=== PATIENT | male | born 1990 | race Two or more races ===

== ENCOUNTER 2016-10-28 19:20 | Observation (INO) | payer OTHER ==
--- NOTE | ~2016-10-28 | CO ---
Unit #: [id number] #: [id number] Patient: VIVEK PRIDE [id number] [facility] [address] [facility] [place], [place] [address] [id number] I MR#: [id number] NAME: VIVEK PRIDE ROOM: 565 Age: 26 Sex: M Admission Date: 10/28/2016 : 1990 Attending Physician: Ching Salazar M.D. Primary Care Physician: Arik Carranza M.D. Consultation Date: 10/30/2016 CONSULTATION REPORT REASON FOR CONSULTATION Overdose, agitation, substance abuse. HISTORY OF PRESENT ILLNESS Mr. Calvillo is a 26-year-old male seen in room 565, bed 1, on 10/30/2016 at [facility]. Patient dressed in hospital attire, lying comfortably in bed. Patient has a sitter. Patient admitted using methamphetamine and opiates. Coming to the hospital, patient was agitated and received medication such as Geodon for agitation. The patient responded well with that and showing improvement. At this time, patient currently denied any suicidal or homicidal ideation. Denied any psychotic symptoms but reported having withdrawals from opiates and methamphetamine. Reported having complaints such as trouble sleeping, anxiety, restlessness of his legs, creepy crawly feeling, hot and cold sweats. PAST PSYCHIATRIC HISTORY Remarkable for history of previous treatment at [facility]. The patient was last admitted on October 28, 2016 and diagnosed with opiate use disorder. No history of any suicide attempt. MEDICAL HISTORY Unremarkable. MEDICATIONS None. FAMILY HISTORY AND SOCIAL HISTORY Patient reports that he has a good support system. No history of abuse. History of polysubstance abuse as mentioned above. REVIEW OF SYSTEMS Complete review of systems is unremarkable except as mentioned above. MENTAL STATUS EXAMINATION Vital signs: 98.6, 76, 18, 117/53, oxygen saturation 98%. General appearance: Patient dressed casually in hospital attire. Lying comfortably. Seemed somewhat anxious and nervous. Attention span and concentration fair. Speech: Regular rate, coherent. Oriented in time, place, and person. Mood and affect labile. Thought process coherent. Thought content: Patient denied any thoughts of harming self or others. Denied any auditory or visual hallucinations but when admitted, he was agitated and confused. Recent and remote memory fair. Language intact. Fund of knowledge fair. Insight and judgment fair to slightly impaired. Unit #: [id number] #: [id number] Patient: VIVEK PRIDE DIAGNOSES PSYCHIATRIC: Delirium, F05, resolved. Opiate use disorder, moderate, F11.20. Amphetamine use disorder, moderate, F15.20. SECONDARY DIAGNOSIS: Deferred. MEDICAL DIAGNOSIS: Please refer to H and P. STRESSORS: Psychosocial stressor. ASSESSMENT AND PLAN 1. Supportive psychotherapy, psychoeducation provided to patient. 2. Educated about benefits and side effects of medications and course and prognosis of illness. 3. Advise to discontinue sitter at this time as patient denied that it was a suicide attempt. Denied current suicidal or homicidal ideation. Denied any psychotic symptoms at this time. Patient was advised medication for withdrawal symptoms from opiates such as Neurontin 300 mg three times a day, Requip 1 mg twice daily, Desyrel 25 mg three times a day, and trazodone 100 mg at bedtime for sleep. 4. Patient advised after discharge from [facility] to follow up in outpatient (1) program at [facility] and also given patient that number, . Please feel free to call if any questions, . Dictated by... Scarlet Lockwood/tommy TD: 10/30/2016 15:50 JOB #: [id number] CONSULTATION REPORT Page 1 of 1 X Kulwant Garrison MD X CONSULTATION REPORT
--- NOTE | ~2016-10-28 | EKG ---
PATIENT: VIVEK PRIDE UNIT #: [id number] Ventricular Rate: 93 BPM Atrial Rate: 93 BPM P-R Interval: 138 ms QRS Duration: 86 ms Q-T Interval: 364 ms QTC Calculation(Bezet): 452 ms P [place]: 86 degrees Calculated R [place]: 96 degrees Calculated T [place]: 10 degrees Diagnosis Line: Normal sinus rhythm Diagnosis Line: Rightward axis Diagnosis Line: Early repolarization Otherwise normal ECG Diagnosis Line: When compared with ECG of 29-OCT-2016 12:58, Diagnosis Line: (unconfirmed) Diagnosis Line: No significant change was found Diagnosis Line: Confirmed by MADDY MAXWELL MD ([id number]) on 10/30/2016 Diagnosis Line: 4:07:23 PM INTERPRETING MD: HANS LUNDY
--- NOTE | ~2016-10-28 | HP ---
Unit #: [id number] #: [id number] Patient: VIVEK PRIDE [id number] [address] [place], [place] [address] [id number] I MR#: [id number] NAME: VIVEK PRIDE ROOM: 565 Age: 26 Sex: M Admission Date: 10/28/2016 : 1990 Attending Physician: Ching Salazar M.D. Primary Care Physician: Arik Carranza M.D. HISTORY AND PHYSICAL CHIEF COMPLAINT Drug overdose. HISTORY OF PRESENT ILLNESS This is a 26-year-old gentleman who is unable to give me any history. Currently he is sedated, moving all extremities, not responding, sleepy. He was brought to the emergency room and he was found in someone's yard. EMS was called. The patient was taken to the emergency room. He was found to be agitated initially in the emergency room and was given Ativan 1 mg initially and then it was repeated another Ativan 2 mg and then he got Geodon 10 mg and Ativan another time, 2 mg repeated. Then eventually the patient has been admitted for methamphetamine, opiate overdose, with withdrawal symptoms and agitation. As mentioned, I am unable to get any information from him. PAST MEDICAL HISTORY Unknown. PAST SURGICAL HISTORY Unknown. SOCIAL HISTORY Unknown. HOME MEDICATIONS Unknown. PHYSICAL EXAMINATION GENERAL: Young man lying in bed comfortably, currently sleepy. He is oriented times zero, sleepy. VITALS: Currently, temperature 98.2, heart rate 112, respiratory rate 17, blood pressure 115/60, oxygen 97% on room air. HEENT: Pupils equal and reactive to light. Head normocephalic, atraumatic. NECK: Supple. No jugular venous distension. LUNGS: Clear to auscultation bilaterally. No rhonchi. No wheezing. HEART: S1 and S2. Regular rate and rhythm. Tachycardia. ABDOMEN: Soft, nontender. EXTREMITIES: Inspection normal. No cyanosis, clubbing or edema. NEUROLOGIC: Unable to do neurologic exam at this time. DIAGNOSTIC STUDIES LABORATORY: CBC shows white blood cell count 14, hemoglobin 10, hematocrit 34, platelets 308. Urine toxicology positive for amphetamine Unit #: [id number] #: [id number] Patient: BIGG,VIVEK and opiates. Chemistry, sodium 136, potassium 3.9, chloride 101, glucose 70, BUN 13, creatinine 1, AST 99, ALT 77, alkaline phosphatase 97, CK total 1580. ASSESSMENT/PLAN 1. Methamphetamine and opiate overdose. 2. Withdrawal and agitation. The patient is requiring Ativan and Geodon in the emergency room. Will keep the patient one-to-one. Ask psychiatry, Dr. Garrison, to evaluate in the morning. Start the patient on Geodon on a p.r.n. basis. 3. Mild rhabdomyolysis. Started on IV fluids, D5 half normal saline at 150 mL per hour. 4. Abnormal LFTs. 5. Mild leukocytosis. 6. DVT prophylaxis. Will place the patient on SCDs. Dictated by Scarlet Maier TD: 10/29/2016 06:20 JOB #: [id number] HISTORY AND PHYSICAL Page 1 of 1 X X HISTORY AND PHYSICAL
--- NOTE | ~2016-10-28 | CO ---
Unit #: [id number] #: [id number] Patient: VIVEK PRIDE [id number] [address] [place], [place] [address] [id number] MR#: [id number] NAME: VIVEK PRIDE ROOM: [facility] Age: 26 Sex: M Admission Date: 10/28/2016 : 1990 Attending Physician: Ching Salazar M.D. Primary Care Physician: Arik Carranza M.D. CONSULTATION REPORT REASON FOR CONSULTATION A 26-year-old -[place] male with marked elevation of total CK and IV drug abuse. CLINICAL SUMMARY Mr. Pride is a 26-year-old gentleman, who has no prior history of any heart issues. He states he has been using heroin and methamphetamine for about two years now. When asked why he was admitted, he states that he thinks he may have had an overdose of heroin and methamphetamine and was brought to the emergency department. Patient was noted to have marked elevation of his total CK to 1580 but with a troponin of less than 0.03. When asked how long he was "down", he really has no idea. He thinks it may have just been an hour or two but clearly with elevated CK, it was much longer. Patient is not able to give any other history surrounding his circumstances of admission. He denies having any shaking chills or fever. He had never been told he had an abnormal heart murmur. He has not had any embolic events or hemoptysis or acute shortness of breath. Denies any chest, neck, arm, jaw, or intrascapular discomfort suggestive of angina. ALLERGIES No known drug allergies. HOME PRESCRIPTION MEDICINE Ultram p.r.n. PAST SURGICAL HISTORY None. SOCIAL HISTORY As noted, patient admits to using both heroin and methamphetamines. He was reportedly found in a puddle in someone's yard. He had gone to [facility] for rehab but signed himself out after 24 hours. He stated "I'm just not ready." FAMILY HISTORY Negative for premature coronary disease. REVIEW OF SYSTEMS A 12-point review of systems is otherwise negative. PHYSICAL EXAMINATION Unit #: [id number] #: [id number] Patient: VIVEK PRIDE GENERAL: He is a slender, young, physically fit appearing 26-year-old gentleman who is in no acute distress. Patient is sitting up in bed watching television. VITAL SIGNS: Blood pressure 119/94. Monitor shows normal sinus rhythm at 88 per minute. Respiratory rate 16 per minute and nonlabored. LUNGS: Showed good air movement bilaterally without any wheezes, rales, or rhonchi. CARDIOVASCULAR: Reveals a normal S1. The pulmonic component of the second heart sound is not increased. There is no right ventricular lift or heave. There is no pathologic murmur auscultated. Carotid upstrokes are brisk bilaterally without any bruits. There are no signs of subacute or acute endocarditis on examination of pharynx, conjunctivae, and nail beds. ABDOMEN: Nondistended with normal bowel sounds. No hepatosplenomegaly. EXTREMITIES: No edema, cyanosis, bruises, or signs of trauma. NEUROLOGIC: He is alert and oriented x3. There are no gross motor or sensory/lateralizing defects. DIAGNOSTIC STUDIES CARDIOVASCULAR: EKG, October 29, 2016 at 12:58: Normal sinus rhythm at 77 beats per minute, completely normal EKG. EKG, October 29, 2016 at 1507: Normal sinus rhythm at 93 beats per minute, completely normal EKG. ASSESSMENT 1. Elevated creatinine kinase enzymes, secondary to mild rhabdomyolysis. Patient has no history compatible with acute coronary syndrome. The troponin associated with the elevated CK is only less than 0.03 and no ischemic changes on the EKG. Clearly noncardiac elevation. 2. Multisubstance abuse: Admits to both heroin and methamphetamine use. 3. Elevated liver function tests. 4. Leukocytosis. RECOMMENDATIONS No further cardiac workup is needed with respect to the elevated CK. This is clearly musculoskeletal in nature and patient pretest likelihood of coronary disease is extremely remote. A stress test will not be useful or really indicated. We will get a 2D echocardiogram with respect to evaluating for any vegetation, particularly on the tricuspid valve given the IV drug abuse. I did discuss with patient almost certain likelihood of eventual debilitating morbidity and mortality resulting from his continued IV drug abuse. He seemed rather disinterested and only responded "yeah, of course" to these issues. He still is not interested in pursuing a drug rehab. Thank you for involving us in the care of this patient and no other cardiac workup is needed other than the echocardiogram. Long-term prognosis depends on eventual rehab from his drug abuse. Dictated by... Manjeet Galindo M.D. Unit #: [id number] #: [id number] Patient: VIVEK PRIDE CARLA/tommy TD: 10/30/2016 14:21 JOB #: [id number] CONSULTATION REPORT Page 1 of 1 X Manjeet Galindo MD X CONSULTATION REPORT
--- NOTE | ~2016-10-28 | EKG ---
PATIENT: VIVEK PRIDE UNIT #: [id number] Ventricular Rate: 77 BPM Atrial Rate: 77 BPM P-R Interval: 136 ms QRS Duration: 72 ms Q-T Interval: 386 ms QTC Calculation(Bezet): 436 ms P [place]: 22 degrees Calculated R [place]: 69 degrees Calculated T [place]: 47 degrees Diagnosis Line: Normal sinus rhythm Diagnosis Line: Normal ECG Diagnosis Line: No previous ECGs available Diagnosis Line: Confirmed by MADDY MAXWELL MD ([id number]) on 10/30/2016 Diagnosis Line: 4:06:42 PM INTERPRETING MD: HANS LUNDY
[~2016-10-28 19:20] MED LIST: FLEXERIL PO; MEDROL PO; TYLENOL #3 PO; ULTRAM PO
[2016-10-28 20:05] LABS: BASOPHIL# 0.1 X10e3 (0-0.3); BASOPHIL% 0.3 % (0-2.5); EOSINOPHIL# 0.1 X10e3 (0-0.7); EOSINOPHIL% 0.6 % (0.0-7.0); HEMOGLOBIN 10.7 gm/dL (13.0-16.0); LYMPHOCYTE# 1.1 X10e3 (1.0-3.5); LYMPHOCYTE% 7.2 % (17.0-45.0); MEAN CELL VOLUME 79.7 FL (83-96); MEAN CORPUSCULAR HEMOGLOBIN 25.1 PG (28-34); MEAN CORPUSCULAR HGB CONC 31.6 g/dL (30-36); MEAN PLATELET VOLUME 8.7 FL (6.5-11.5); MONOCYTE# 0.9 X10e3 (0-1.0); MONOCYTE% 6.2 % (3.0-12.0); NEUTROPHIL# 12.8 X10e3 (1.5-7.1); NEUTROPHIL% 85.7 % (40-75); PLATELET COUNT 308 X10e3 (140-420); RED BLOOD COUNT 4.26 X10e (3.90-5.60); RED CELL DISTRIBUTION WIDTH 17.5 % (11.0-15.5); WHITE BLOOD COUNT 14.9 X10e3 (4.0-10.5)
[2016-10-28 20:07] LABS: DIFF IND NO
[2016-10-28 20:14] LABS: AMPHETAMINE POS (NEG); BARBITURATES NEG (NEG); BENZODIAZEPINES NEG (NEG); COCAINE NEG (NEG); MARIJUANA NEG (NEG); OPIATES POS (NEG); TRICYCLIC ANTIDEPRESSANTS NEG (NEG); U METHADONE NEG (NEG)
[2016-10-28 20:43] LABS: BILIRUBIN, DIRECT 0.1 mg/dL (0.0-0.2); BILIRUBIN,INDIRECT 0.6 mg/dL (0.0-0.9); BILIRUBIN,TOTAL 0.7 mg/dL (0.2-2.0); CALCIUM SERUM 8.9 mg/dL (8.4-10.2); GLOM FILT RATE Estimated 103.4 mL/min (>60); POTASSIUM 3.9 mmol/L (3.5-5.1); PROTEIN TOTAL SERUM 7.2 g/dL (6.0-8.3)
[2016-10-29 05:32] LABS: BASOPHIL# 0.1 X10e3 (0-0.3); BASOPHIL% 0.6 % (0-2.5); EOSINOPHIL# 0.2 X10e3 (0-0.7); EOSINOPHIL% 2.2 % (0.0-7.0); HEMATOCRIT 32.4 % (38.0-50.0); HEMOGLOBIN 10.7 gm/dL (13.0-16.0); LYMPHOCYTE# 1.8 X10e3 (1.0-3.5); LYMPHOCYTE% 18.4 % (17.0-45.0); MEAN PLATELET VOLUME 8.6 FL (6.5-11.5); MONOCYTE# 0.9 X10e3 (0-1.0); NEUTROPHIL# 6.7 X10e3 (1.5-7.1); NEUTROPHIL% 69.8 % (40-75); PLATELET COUNT 273 X10e3 (140-420); RED CELL DISTRIBUTION WIDTH 17.7 % (11.0-15.5); WHITE BLOOD COUNT 9.5 X10e3 (4.0-10.5)
[2016-10-29 05:33] LABS: DIFF IND NO
[2016-10-29 06:13] LABS: ALBUMIN SERUM 3.2 g/dL (3.5-5.0); BILIRUBIN,TOTAL 0.7 mg/dL (0.2-2.0); CALCIUM SERUM 8.3 mg/dL (8.4-10.2); CREATININE SERUM 0.6 mg/dL (0.6-1.4); GLOM FILT RATE Estimated 138.8 mL/min (>60); PROTEIN TOTAL SERUM 6.1 g/dL (6.0-8.3)
[2016-10-29 06:42] LABS: %MB 1.5 % (0.0-4.0); MB 17.8 ng/ml
[2016-10-29 16:33] LABS: %MB 1.3 % (0.0-4.0); MB 10.8 ng/ml
[2016-10-29 22:15] LABS: %MB 1.1 % (0.0-4.0); MB 7.9 ng/ml
[2016-10-30 03:57] LABS: %MB 0.9 % (0.0-4.0); MB 5.4 ng/ml
== END 2016-10-30 16:54 | disposition left against medical advice (07) ==
LOC: CED 19:20 → CEDOF 23:21 → C5C 10-29 00:39
PROVIDERS: Emergency Medicine; Family Medicine; Internal Medicine
DX: T43.621A Poisoning by amphetamines, accidental (unintentional), initial encounter (principal); T40.1X1A Poisoning by heroin, accidental (unintentional), initial encounter; F15.23 Other stimulant dependence with withdrawal; F11.23 Opioid dependence with withdrawal; M62.82 Rhabdomyolysis; R79.89 Other specified abnormal findings of blood chemistry; D72.829 Elevated white blood cell count, unspecified; I07.1 Rheumatic tricuspid insufficiency
CPT/HCPCS: 80048; 80053; 80076; 80307; 82550; 82553; 84484; 85025; 92610; 93005; 93306; 96361; 96365; 96366; 96372; 96374; 96375; 96376; 99285; G0378; J2060; J3486

== ENCOUNTER 2016-11-06 12:09 | Emergency (ER) | payer OTHER ==
[2016-11-06 17:07] LABS: AMPHETAMINE POS (NEG); BARBITURATES NEG (NEG); BENZODIAZEPINES NEG (NEG); COCAINE NEG (NEG); MARIJUANA NEG (NEG); OPIATES POS (NEG); TRICYCLIC ANTIDEPRESSANTS NEG (NEG); U METHADONE NEG (NEG)
== END 2016-11-06 18:11 | disposition home or self-care (01) ==
LOC: CED 12:09
PROVIDERS: Emergency Medicine
DX: F15.10 Other stimulant abuse, uncomplicated (principal); F11.10 Opioid abuse, uncomplicated
CPT/HCPCS: 80307; 96360; 99284

== ENCOUNTER 2017-02-14 22:48 | Emergency (ER) | payer OTHER ==
[~2017-02-14] VITALS: Ht 188 cm; Wt 81.6 kg
== END 2017-02-15 08:08 | disposition home or self-care (01) ==
LOC: CED 22:48
DX: F15.129 Other stimulant abuse with intoxication, unspecified (principal)
CPT/HCPCS: 96361; 96374; 99284; J2060

== ENCOUNTER 2017-02-18 16:18 | Emergency (ER) | payer OTHER ==
[~2017-02-18] VITALS: Ht 170.2 cm; Wt 81.6 kg
--- NOTE | ~2017-02-18 | EKG ---
PATIENT: VIVEK PRIDE UNIT #: [id number] Ventricular Rate: 97 BPM Atrial Rate: 97 BPM P-R Interval: 120 ms QRS Duration: 76 ms Q-T Interval: 342 ms QTC Calculation(Bezet): 434 ms P [place]: 42 degrees Calculated R [place]: 17 degrees Calculated T [place]: 42 degrees Diagnosis Line: Normal sinus rhythm Diagnosis Line: Normal ECG Diagnosis Line: When compared with ECG of 29-OCT-2016 15:07, Diagnosis Line: Questionable change in QRS axis Diagnosis Line: T wave amplitude has increased in Anterior leads Diagnosis Line: Confirmed by SEVERO WEISS MD ([id number]) on Diagnosis Line: 02/20/2017 4:53:31 PM INTERPRETING MD: ESTIVEN
[2017-02-18 18:02] LABS: ALBUMIN SERUM 3.6 g/dL (3.5-5.0); ALKALINE PHOSPHATASE 93 U/L (32-92); ALT (SGPT) 19 U/L (10-40); AST (SGOT) 23 U/L (10-42); BILIRUBIN, DIRECT 0.1 mg/dL (0.0-0.2); BILIRUBIN,INDIRECT 0.5 mg/dL (0.0-0.9); BILIRUBIN,TOTAL 0.6 mg/dL (0.2-2.0); BLOOD UREA NITROGEN 19 mg/dL (9-23); CARBON DIOXIDE 27 mmol/L (22-31); CHLORIDE 106 mmol/L (100-111); GLOM FILT RATE Estimated 102.7 mL/min (>60); GLUCOSE FASTING 94 mg/dL (70-110); POTASSIUM 3.8 mmol/L (3.5-5.1); PROTEIN TOTAL SERUM 7.3 g/dL (6.0-8.3); SALICYLATE <4.0 mg/dL; SODIUM 141 mmol/L (135-145)
[2017-02-18 18:07] LABS: ACETAMINOPHEN <10 ug/mL
== END 2017-02-18 18:42 | disposition home or self-care (01) ==
LOC: CED 16:18
PROVIDERS: Emergency Medicine
DX: F15.129 Other stimulant abuse with intoxication, unspecified (principal); F17.200 Nicotine dependence, unspecified, uncomplicated
CPT/HCPCS: 36415; 80048; 80076; 93005; 96360; 99284; G0480